=== PATIENT | male | born 1970 | race African-American/Black ===

== ENCOUNTER 2018-05-16 17:23 | Inpatient (IN) | payer MEDICAID, OTHER ==
[~2018-05-16] VITALS: Ht 185.4 cm; Wt 106.4 kg
[2018-05-16] MEDS ORDERED: FAMOTIDINE 20MG/2ML VIAL IV STA (18:38)
[2018-05-16] MEDS ORDERED: SODIUM CHLORIDE 0.9% 1,000 ML IV ONE (18:38)
[2018-05-16] MEDS ORDERED: LORAZEPAM 2MG/ML CPJ IV ONE (18:45)
[2018-05-16] MEDS ORDERED: METOCLOPRAMIDE HCL 10MG/2ML VIAL IV ONE (18:45)
[2018-05-16 19:07] LABS: HEMOGLOBIN. 12.9 g/dL (14.0-18.0); MEAN CORPUSCULAR HEMOGLOBIN 25.6 pg (28.0-32.0); MEAN CORPUSCULAR VOLUME 81.1 fL (80.0-94.0); MEAN PLATELET VOLUME 9.2 fl (7.4-10.4); PLATELET 248 x1000/uL (130-400); RED BLOOD CELL COUNT 5.06 mill/uL (4.7-6.1); RED CELL DISTRIBUTION WIDTH 16.2 % (11.6-14.6)
[2018-05-16 19:14] LABS: CHLORIDE 103 mEq/L (98-107)
[2018-05-16 20:13] LABS: PLATELET ESTIMATE NORMAL
[2018-05-16] MEDS ORDERED: POTASSIUM CHLORIDE INJ 40 MEQ in DEXT 5% WATER 250 ML IV NR (21:00)
[2018-05-16] MEDS ORDERED: ACETAMINOPHEN 325MG TABLET PO PRN (22:00)
[2018-05-16] MEDS ORDERED: HYDROCODONE/ACETAMINOPHEN 5/325MG TABLET PO PRN (22:00)
[2018-05-16] MEDS ORDERED: ONDANSETRON HCL 4MG/2ML INJ IV PRN (22:00)
[2018-05-16] MEDS ORDERED: DOCUSATE SODIUM 100MG CAPSULE PO PRN (22:00)
[2018-05-16] MEDS ORDERED: MAGNESIUM/ALUMINUM HYDROXIDE/SIMETHICONE 30ML UDC PO PRN (22:00)
[2018-05-16] MEDS ORDERED: IPRATROPIUM/ALBUTEROL 0.5-3(2.5)MG/3ML NEB INH PRN (22:00)
[2018-05-16] MEDS ORDERED: CLONIDINE 0.1MG TABLET PO PRN (22:00)
[2018-05-17] VITALS (13 sets, daily range): BP systolic 115–179; BP diastolic 75–107
[2018-05-17 00:27] LABS: CREATINE KINASE 176 IU/L (39-308); CREATINE KINASE MB FRACTION 1.3 ng/mL (0.5-3.6)
[2018-05-17] MEDS ORDERED: MVI, ADULT NO.1 10 ML, FOLIC ACID 1 MG, THIAMINE HCL 100 MG in SODIUM CHLORIDE 0.9% 1,0... IV NR ×4 (03:00)
[2018-05-17] MEDS: CHLORDIAZEPOXIDE 25MG CAPSULE PO SCH ×3 (05:10→21:02)
[2018-05-17] MEDS: ENOXAPARIN 30MG/0.3ML SYR SUBCUT SCH ×2 (08:41→20:02)
[2018-05-17] MEDS ORDERED: LISINOPRIL 20MG TABLET PO SCH (09:00)
[2018-05-17 09:20] LABS: BASOPHILS % 0.3 % (0.0-2.0); HEMATOCRIT. 35.5 % (42.0-52.0); HEMOGLOBIN. 11.4 g/dL (14.0-18.0); LYMPHOCYTES % 15.4 % (20.0-50.0); MEAN CORPUSCULAR HEMOGLOBIN 25.6 pg (28.0-32.0); MEAN CORPUSCULAR VOLUME 80.1 fL (80.0-94.0); MEAN PLATELET VOLUME 9.3 fl (7.4-10.4); MONOCYTES % 6.9 % (2.0-8.0); NEUTROPHILS % 77.4 % (40.0-76.0); PLATELET 211 x1000/uL (130-400); RED BLOOD CELL COUNT 4.43 mill/uL (4.7-6.1); RED CELL DISTRIBUTION WIDTH 15.8 % (11.6-14.6)
[2018-05-17 09:32] LABS: CHLORIDE 108 mEq/L (98-107)
[2018-05-17 09:41] LABS: LDL CHOLESTEROL 71 mg/dL (5-100)
[2018-05-17 09:42] LABS: CREATINE KINASE 323 IU/L (39-308)
[2018-05-17 09:46] LABS: CREATINE KINASE MB FRACTION 2.5 ng/mL (0.5-3.6); HDL CHOLESTEROL 120 mg/dL (40-59)
[2018-05-17] MEDS ORDERED: MAGNESIUM 2 G PREMIX 50 ML IV SCH (10:00)
[2018-05-17] MEDS ORDERED: PANTOPRAZOLE SODIUM 40 MG/VIAL IV SCH (11:00)
[2018-05-17] MEDS ORDERED: SODIUM CHLORIDE 0.9% 1,000 ML IV SCH (11:00)
[2018-05-17] MEDS ORDERED: AMLODIPINE 5MG TABLET PO SCH ×2 (11:00→21:00)
[2018-05-17 12:32] LABS: TOTAL IRON BINDING CAPACITY 259 ug/dL (250-450)
[2018-05-17 13:07] LABS: VITAMIN B12 SERUM 643 pg/mL (211-911)
[2018-05-17] MEDS: CLONIDINE 0.2MG TABLET PO SCH ×2 (13:31→21:02)
[2018-05-17 14:08] LABS: FERRITIN 337 ng/mL (22-322)
[2018-05-17 14:19] LABS: HEPATITIS B SURFACE ANTIGEN NEGATIVE
[2018-05-17 14:48] LABS: HEPATITIS A AB IGM NEGATIVE (NEGATIVE)
[2018-05-17] MEDS ORDERED: METOPROLOL TARTRATE 50MG TABLET PO SCH (21:00)
[2018-05-18] VITALS: BP 123/85
[2018-05-18 02:00] VITALS: BP 125/80
[2018-05-18] MEDS: LORAZEPAM 2MG/ML CPJ IV PRN ×2 (02:03→05:47)
[2018-05-18 04:00] VITALS: BP 139/106
[2018-05-18] MEDS: CLONIDINE 0.2MG TABLET PO SCH (05:00)
[2018-05-18] MEDS: CHLORDIAZEPOXIDE 25MG CAPSULE PO SCH (05:00)
[2018-05-18 06:00] VITALS: BP 139/102
[2018-05-18 07:26] LABS: EOSINOPHILS % 1.1 % (0.0-5.0); HEMATOCRIT. 36.9 % (42.0-52.0); HEMOGLOBIN. 11.7 g/dL (14.0-18.0); LYMPHOCYTES % 29.2 % (20.0-50.0); MEAN CORPUSCULAR HEMOGLOBIN 25.5 pg (28.0-32.0); MEAN CORPUSCULAR VOLUME 80.6 fL (80.0-94.0); MEAN PLATELET VOLUME 9.5 fl (7.4-10.4); MONOCYTES % 6.7 % (2.0-8.0); PLATELET 185 x1000/uL (130-400); RED BLOOD CELL COUNT 4.58 mill/uL (4.7-6.1); RED CELL DISTRIBUTION WIDTH 16.1 % (11.6-14.6)
[2018-05-18 07:40] LABS: CHLORIDE 105 mEq/L (98-107)
[2018-05-18 07:57] LABS: CREATINE KINASE 327 IU/L (39-308)
[2018-05-18] MEDS ORDERED: FOLIC ACID 1MG TABLET PO SCH (09:00)
[2018-05-18] MEDS ORDERED: MULTIVITAMINS,THER W-MINERALS TABLET PO SCH (09:00)
[2018-05-18] MEDS ORDERED: THIAMINE HCL 100MG TABLET PO SCH (09:00)
== END 2018-05-18 09:20 | disposition left against medical advice (07) | DRG 241 ==
LOC: ER 17:46 → ENRESERV 23:37 → 5EST 05-17 00:31
PROVIDERS: ADMIT Internal Medicine; ATTEND Internal Medicine
DX: K29.71 Gastritis, unspecified, with bleeding (principal); I24.9 Acute ischemic heart disease, unspecified; D63.8 Anemia in other chronic diseases classified elsewhere; E78.5 Hyperlipidemia, unspecified; F10.229 Alcohol dependence with intoxication, unspecified; F10.239 Alcohol dependence with withdrawal, unspecified; G40.909 Epilepsy, unspecified, not intractable, without status epilepticus; Z53.21 Procedure and treatment not carried out due to patient leaving prior to being seen by health care provider; I10 Essential (primary) hypertension; R00.0 Tachycardia, unspecified; K30 Functional dyspepsia; K59.00 Constipation, unspecified; R74.0 Nonspecific elevation of levels of transaminase and lactic acid dehydrogenase [LDH]; Z91.14 Patient's other noncompliance with medication regimen
CPT/HCPCS: 36415; 71045; 76700; 80048; 80061; 80076; 82140; 82550; 82553; 82607; 82728; 82746; 83036; 83540; 83550; 83735; 84443; 84484; 86705; 86709; 86803; 87340; 93005; 93970; 96361; 96374; 96375; 99285; C9113; J1650; J2060; J2405; J2765; J3411; J3475; J3480; J3490; J7030; J7040; J7060

== ENCOUNTER 2018-05-30 09:32 | Inpatient (IN) | payer OTHER ==
[~2018-05-30] VITALS: Ht 210.8 cm; Wt 108.9 kg
[2018-05-30] MEDS ORDERED: LORAZEPAM 2MG/ML CPJ IV ONE (10:45)
[2018-05-30] MEDS ORDERED: ASPIRIN 81MG TABLET PO ONE (10:45)
[2018-05-30] MEDS ORDERED: SODIUM CHLORIDE 0.9% 1000ML BAG (SEPSIS BOLUS) IV ONE (10:45)
[2018-05-30] MEDS: NITROGLYCERIN 0.4MG TABLET SL SL PRN ×3 (10:54→11:38)
[2018-05-30 11:26] LABS: EOSINOPHILS % 0.8 % (0.0-5.0); HEMATOCRIT. 38.9 % (42.0-52.0); HEMOGLOBIN. 12.3 g/dL (14.0-18.0); LYMPHOCYTES % 21.4 % (20.0-50.0); MEAN CORPUSCULAR VOLUME 79.1 fL (80.0-94.0); MEAN PLATELET VOLUME 8.7 fl (7.4-10.4); MONOCYTES % 4.1 % (2.0-8.0); NEUTROPHILS % 72.7 % (40.0-76.0); PLATELET 298 x1000/uL (130-400); RED BLOOD CELL COUNT 4.92 mill/uL (4.7-6.1)
[2018-05-30 11:33] LABS: CHLORIDE 102 mEq/L (98-107); PARTIAL THROMBOPLASTIN TIME 25.9 sec (23.4-31.0); PROTHROMBIN TIME 10.3 sec (9.1-11.1)
[2018-05-30 11:37] LABS: ETHANOL BLOOD 74 mg/dL
[2018-05-30 11:38] LABS: CLARITY URINE CLOUDY (CLEAR); COLOR URINE YELLOW (YELLOW); KETONES URINE 4+ (NEGATIVE); LEUKOCYTE ESTERASE URINE NEGATIVE (NEGATIVE); NITRITE URINE NEGATIVE (NEGATIVE); OCCULT BLOOD URINE 2+ (NEGATIVE); PH URINE 6.5 (4.5-8.0); PROTEIN URINE 2+ (NEGATIVE); SPECIFIC GRAVITY URINE 1.025 (1.005-1.030)
[2018-05-30 11:54] LABS: *AMPHETAMINES SCREEN URINE NEGATIVE (NEGATIVE); *BARBITURATES SCREEN URINE NEGATIVE (NEGATIVE)
[2018-05-30 11:55] LABS: *BENZODIAZEPINES SCREEN URINE PRESUMTIVE POSITIVE (NEGATIVE); *COCAINE SCREEN URINE NEGATIVE (NEGATIVE); METHADONE URINE SCREEN NEGATIVE (NEGATIVE); OPIATES URINE SCREEN NEGATIVE (NEGATIVE); PHENCYCLIDINE URINE SCREEN NEGATIVE (NEGATIVE)
[2018-05-30 11:56] LABS: CANNABINOID URINE SCREEN NEGATIVE (NEGATIVE)
[2018-05-30] MEDS ORDERED: MAGNESIUM OXIDE 400MG TABLET PO SCH (12:00)
[2018-05-30] MEDS ORDERED: POTASSIUM CHLORIDE 20MEQ TABLET SR PO ONE (12:00)
[2018-05-30] MEDS ORDERED: LEVOFLOXACIN 750MG PREMIX 150 ML IV ONE (12:00)
[2018-05-30] MEDS ORDERED: ACETAMINOPHEN 325MG TABLET PO PRN (13:00)
[2018-05-30] MEDS ORDERED: ONDANSETRON HCL 4MG/2ML INJ IV PRN (13:00)
[2018-05-30] MEDS ORDERED: LORAZEPAM 2MG/ML CPJ IV PRN (13:00)
[2018-05-30] MEDS ORDERED: MORPHINE SULFATE 4 MG/ML CPJ (NOT FOR IM USE) IV PRN (13:30)
[2018-05-30] MEDS: FOLIC ACID 1 MG, THIAMINE HCL 100 MG, MVI, ADULT NO.1 10 ML in DEXTROSE 5% WATER 1,000 ML IV SCH ×8 (13:41→23:10)
[2018-05-30] MEDS: CHLORDIAZEPOXIDE 25MG CAPSULE PO SCH ×2 (14:00→20:08)
[2018-05-30] MEDS ORDERED: LOSARTAN POTASSIUM 50 MG TABLET PO NR (16:45)
[2018-05-30 19:21] VITALS: BP 157/102
[2018-05-30 20:00] VITALS: BP 157/97
[2018-05-30] MEDS: LEVETIRACETAM 500MG TABLET PO SCH (20:08)
[2018-05-30] MEDS: AMLODIPINE 5MG TABLET PO SCH (20:08)
[2018-05-31] VITALS: BP 158/104
[2018-05-31 04:00] VITALS: BP 133/97
[2018-05-31] MEDS: CHLORDIAZEPOXIDE 25MG CAPSULE PO SCH ×2 (06:44→14:53)
[2018-05-31 08:00] VITALS: BP 141/100
[2018-05-31 08:09] LABS: BASOPHILS % 0.8 % (0.0-2.0); EOSINOPHILS % 1.2 % (0.0-5.0); HEMATOCRIT. 37.5 % (42.0-52.0); HEMOGLOBIN. 11.7 g/dL (14.0-18.0); LYMPHOCYTES % 25.6 % (20.0-50.0); MEAN CORPUSCULAR VOLUME 80.2 fL (80.0-94.0); MONOCYTES % 7.9 % (2.0-8.0); NEUTROPHILS % 64.5 % (40.0-76.0); PLATELET 216 x1000/uL (130-400); RED BLOOD CELL COUNT 4.67 mill/uL (4.7-6.1); RED CELL DISTRIBUTION WIDTH 16.1 % (11.6-14.6)
[2018-05-31 08:50] LABS: CHLORIDE 99 mEq/L (98-107)
[2018-05-31] MEDS ORDERED: LOSARTAN POTASSIUM 50 MG TABLET PO SCH (09:00)
[2018-05-31] MEDS ORDERED: ASPIRIN 81MG TABLET PO SCH (09:00)
[2018-05-31] MEDS ORDERED: REGADENOSON 0.4 MG/5 ML IV SCH (09:15)
[2018-05-31] MEDS: LEVETIRACETAM 500MG TABLET PO SCH (09:50)
[2018-05-31] MEDS: AMLODIPINE 5MG TABLET PO SCH (09:50)
[2018-05-31] MEDS ORDERED: REGADENOSON 0.4 MG/5 ML IV ONE (10:55)
[2018-05-31] MEDS ORDERED: POTASSIUM CHLORIDE 20MEQ TABLET SR PO NR (11:45)
[2018-05-31 12:00] VITALS: BP 140/90
[2018-05-31 14:05] LABS: T4 FREE 0.98 ng/dL (0.76-1.46)
[2018-05-31 15:00] LABS: CREATINE KINASE MB FRACTION 1.2 ng/mL (0.5-3.6)
[2018-05-31 16:00] VITALS: BP 137/94
[2018-05-31 16:28] VITALS: BP 137/94
== END 2018-05-31 16:48 | disposition home or self-care (01) | DRG 203 ==
LOC: ER 09:32 → 7WST 12:33 → EDBEDREQ 12:37 → ENRESERV 17:05
PROVIDERS: ADMIT Internal Medicine; ATTEND Internal Medicine
DX: M94.0 Chondrocostal junction syndrome [Tietze] (principal); I11.0 Hypertensive heart disease with heart failure; E83.42 Hypomagnesemia; I50.22 Chronic systolic (congestive) heart failure; I42.6 Alcoholic cardiomyopathy; D64.9 Anemia, unspecified; E66.9 Obesity, unspecified; G40.909 Epilepsy, unspecified, not intractable, without status epilepticus; I10 Essential (primary) hypertension; Z91.14 Patient's other noncompliance with medication regimen; E87.6 Hypokalemia; I16.0 Hypertensive urgency; Z68.24 Body mass index [BMI] 24.0-24.9, adult
CPT/HCPCS: 36415; 71045; 78452; 80048; 80061; 80305; 80320; 82550; 82553; 83036; 83605; 83735; 83880; 84145; 84439; 84443; 84484; 85379; 87804; 93005; 93017; 93306; 93970; 96365; 96375; 99291; A9500; J1956; J2060; J2270; J2405; J2785; J3411; J3490; J7030; J7070; G0480

== ENCOUNTER 2018-06-26 06:12 | Inpatient (IN) | payer OTHER ==
[~2018-06-26] VITALS: Ht 195.6 cm; Wt 113.4 kg
[2018-06-26] MEDS ORDERED: SODIUM CHLORIDE 0.9% 1,000 ML IV ONE (06:54)
[2018-06-26] MEDS ORDERED: ACETAMINOPHEN 325MG TABLET PO STA (06:54)
[2018-06-26 07:23] LABS: BASOPHILS % 1.1 % (0.0-2.0); EOSINOPHILS % 0.5 % (0.0-5.0); HEMATOCRIT. 38.6 % (42.0-52.0); HEMOGLOBIN. 12.2 g/dL (14.0-18.0); LYMPHOCYTES % 24.3 % (20.0-50.0); MEAN CORPUSCULAR HEMOGLOBIN 25.1 pg (28.0-32.0); MEAN CORPUSCULAR VOLUME 79.4 fL (80.0-94.0); MEAN PLATELET VOLUME 9.8 fl (7.4-10.4); NEUTROPHILS % 71.1 % (40.0-76.0); PLATELET 111 x1000/uL (130-400); RED BLOOD CELL COUNT 4.85 mill/uL (4.7-6.1); RED CELL DISTRIBUTION WIDTH 14.8 % (11.6-14.6)
[2018-06-26 07:26] LABS: CHLORIDE 101 mEq/L (98-107)
[2018-06-26 07:30] LABS: ETHANOL BLOOD 135 mg/dL
[2018-06-26] MEDS ORDERED: IBUPROFEN 600MG TABLET PO STA (09:20)
[2018-06-26] MEDS ORDERED: ASPIRIN 81MG TABLET PO ONE (09:30)
[2018-06-26 09:32] LABS: *AMPHETAMINES SCREEN URINE NEGATIVE (NEGATIVE); *BARBITURATES SCREEN URINE NEGATIVE (NEGATIVE); *BENZODIAZEPINES SCREEN URINE PRESUMTIVE POSITIVE (NEGATIVE); *COCAINE SCREEN URINE NEGATIVE (NEGATIVE)
[2018-06-26 09:33] LABS: CANNABINOID URINE SCREEN NEGATIVE (NEGATIVE); METHADONE URINE SCREEN NEGATIVE (NEGATIVE); OPIATES URINE SCREEN NEGATIVE (NEGATIVE); PHENCYCLIDINE URINE SCREEN NEGATIVE (NEGATIVE)
[2018-06-26] MEDS: NITROGLYCERIN 0.4MG TABLET SL SL PRN ×2 (09:40→20:50)
[2018-06-26] MEDS ORDERED: MAGNESIUM/ALUMINUM HYDROXIDE/SIMETHICONE 30ML UDC PO PRN (09:45)
[2018-06-26] MEDS ORDERED: IPRATROPIUM/ALBUTEROL 0.5-3(2.5)MG/3ML NEB INH PRN (09:45)
[2018-06-26] MEDS ORDERED: DIPHENHYDRAMINE 50MG/ML VIAL IV PRN (09:45)
[2018-06-26] MEDS ORDERED: GUAIFENESIN 200MG/10ML SUGAR FREE UDC PO PRN (09:45)
[2018-06-26] MEDS ORDERED: DOCUSATE SODIUM 100MG CAPSULE PO PRN (09:45)
[2018-06-26] MEDS ORDERED: CLONIDINE 0.1MG TABLET PO PRN (14:00)
[2018-06-26] MEDS: LORAZEPAM 2MG/ML CPJ IV PRN (14:15)
[2018-06-26] MEDS: ONDANSETRON HCL 4MG/2ML INJ IV PRN (14:15)
[2018-06-26] MEDS ORDERED: AMLODIPINE 5MG TABLET PO NR (14:15)
[2018-06-26] MEDS ORDERED: SODIUM CHLORIDE 0.45% 1,000 ML IV ONE (14:15)
[2018-06-26 16:00] VITALS: BP 161/92
[2018-06-26 16:21] LABS: TOTAL IRON BINDING CAPACITY 259 ug/dL (250-450)
[2018-06-26] MEDS ORDERED: BISACODYL 10MG SUPP PR PRN ×2 (16:30)
[2018-06-26 16:32] VITALS: BP 153/92
[2018-06-26 16:35] LABS: FOLIC ACID (FOLATE) SERUM 5.7 ng/mL (>5.38)
[2018-06-26] MEDS ORDERED: DEXT 5%/0.45% NACL 500ML 500 ML IV ONE (16:45)
[2018-06-26 16:59] LABS: HEPATITIS B SURFACE ANTIGEN NEGATIVE
[2018-06-26 17:29] LABS: HEPATITIS A AB IGM NEGATIVE (NEGATIVE)
[2018-06-26] MEDS: MORPHINE SULFATE 4 MG/ML CPJ (NOT FOR IM USE) IV PRN ×2 (17:40→23:49)
[2018-06-26] MEDS: DIATR MEGLU/DIATRIZOATE SOLN 30ML PO SCH ×2 (17:41→17:48)
[2018-06-26 17:59] LABS: CREATINE KINASE MB FRACTION 2.1 ng/mL (0.5-3.6)
[2018-06-26] MEDS ORDERED: MORPHINE SULFATE 4 MG/ML CPJ (NOT FOR IM USE) IV SCH (18:00)
[2018-06-26 20:00] VITALS: BP 167/96
[2018-06-26] MEDS ORDERED: IOHEXOL-300 100 ML BOTTLE ONE (20:24)
[2018-06-27] VITALS: BP 160/105
[2018-06-27] MEDS: ONDANSETRON HCL 4MG/2ML INJ IV PRN (00:38)
[2018-06-27] MEDS: LORAZEPAM 2MG/ML CPJ IV PRN (00:38)
[2018-06-27 04:00] VITALS: BP 157/105
[2018-06-27 06:24] LABS: BASOPHILS % 1.1 % (0.0-2.0); EOSINOPHILS % 0.4 % (0.0-5.0); HEMATOCRIT. 37.5 % (42.0-52.0); HEMOGLOBIN. 11.9 g/dL (14.0-18.0); LYMPHOCYTES % 12.3 % (20.0-50.0); MEAN CORPUSCULAR HEMOGLOBIN 25.3 pg (28.0-32.0); MEAN CORPUSCULAR VOLUME 79.9 fL (80.0-94.0); MEAN PLATELET VOLUME 10.3 fl (7.4-10.4); MONOCYTES % 6.3 % (2.0-8.0); NEUTROPHILS % 79.9 % (40.0-76.0); PLATELET 83 x1000/uL (130-400); RED CELL DISTRIBUTION WIDTH 14.7 % (11.6-14.6)
[2018-06-27 06:41] LABS: CHLORIDE 105 mEq/L (98-107)
[2018-06-27 07:06] LABS: LDL CHOLESTEROL 94 mg/dL (5-100)
[2018-06-27 07:08] LABS: CREATINE KINASE 231 IU/L (39-308)
[2018-06-27 07:09] LABS: HDL CHOLESTEROL 91 mg/dL (40-59)
[2018-06-27 07:10] LABS: CREATINE KINASE MB FRACTION 2.8 ng/mL (0.5-3.6)
[2018-06-27 08:00] VITALS: BP 155/106
[2018-06-27] MEDS ORDERED: SODIUM CHLORIDE 0.9% 1,000 ML IV SCH (08:00)
[2018-06-27] MEDS: MORPHINE SULFATE 4 MG/ML CPJ (NOT FOR IM USE) IV PRN (08:15)
[2018-06-27] MEDS ORDERED: AMLODIPINE 5MG TABLET PO SCH (09:00)
[2018-06-27 12:00] VITALS: BP 147/99
[2018-06-27 12:53] VITALS: BP 147/99
[2018-06-27] MEDS ORDERED: CLONIDINE 0.1MG TABLET PO SCH (14:00)
== END 2018-06-27 13:40 | disposition home or self-care (01) | DRG 775 ==
LOC: ER 06:12 → 8WST 09:33 → ENRESERV 12:29
PROVIDERS: ADMIT Internal Medicine; ATTEND Internal Medicine
DX: F10.229 Alcohol dependence with intoxication, unspecified (principal); D69.6 Thrombocytopenia, unspecified; I42.0 Dilated cardiomyopathy; I45.81 Long QT syndrome; D50.9 Iron deficiency anemia, unspecified; D63.8 Anemia in other chronic diseases classified elsewhere; E87.6 Hypokalemia; G40.909 Epilepsy, unspecified, not intractable, without status epilepticus; I10 Essential (primary) hypertension; Y90.6 Blood alcohol level of 120-199 mg/100 ml; R74.0 Nonspecific elevation of levels of transaminase and lactic acid dehydrogenase [LDH]; K76.9 Liver disease, unspecified
CPT/HCPCS: 36415; 71045; 74177; 76700; 80061; 80305; 80320; 82248; 82550; 82553; 82728; 82746; 83540; 83550; 84443; 84484; 86705; 86709; 86803; 87340; 93005; 93970; 96360; 96361; 97162; 97165; 99285; J2060; J2270; J2405; J7030; Q9963; Q9967; G0480

== ENCOUNTER 2018-06-28 10:39 | Emergency (ER) | payer OTHER ==
[~2018-06-28] VITALS: Ht 193 cm; Wt 114.0 kg
[2018-06-28] MEDS ORDERED: KETOROLAC 30MG/ML VIAL IV STA (11:39)
[2018-06-28] MEDS ORDERED: SODIUM CHLORIDE 0.9% 1,000 ML IV ONE (11:39)
[2018-06-28 11:52] LABS: BASOPHILS % 1.2 % (0.0-2.0); HEMATOCRIT. 37.5 % (42.0-52.0); HEMOGLOBIN. 11.9 g/dL (14.0-18.0); LYMPHOCYTES % 17.7 % (20.0-50.0); MEAN CORPUSCULAR HEMOGLOBIN 25.2 pg (28.0-32.0); MEAN CORPUSCULAR VOLUME 79.7 fL (80.0-94.0); MONOCYTES % 5.4 % (2.0-8.0); NEUTROPHILS % 72.7 % (40.0-76.0); PLATELET 72 x1000/uL (130-400); RED BLOOD CELL COUNT 4.71 mill/uL (4.7-6.1); RED CELL DISTRIBUTION WIDTH 14.6 % (11.6-14.6)
[2018-06-28 12:02] LABS: PARTIAL THROMBOPLASTIN TIME 26.4 sec (23.4-31.0); PROTHROMBIN TIME 10.5 sec (9.6-11.0)
[2018-06-28 12:03] LABS: ETHANOL BLOOD < 10 mg/dL
[2018-06-28 12:09] LABS: CHLORIDE 104 mEq/L (98-107)
[2018-06-28 14:42] LABS: CLARITY URINE CLEAR (CLEAR); COLOR URINE ORANGE (YELLOW); KETONES URINE 3+ (NEGATIVE); LEUKOCYTE ESTERASE URINE TRACE (NEGATIVE); NITRITE URINE NEGATIVE (NEGATIVE); OCCULT BLOOD URINE 2+ (NEGATIVE); PH URINE 6.5 (4.5-8.0); PROTEIN URINE 2+ (NEGATIVE)
[2018-06-28 14:56] LABS: *AMPHETAMINES SCREEN URINE NEGATIVE (NEGATIVE); *BARBITURATES SCREEN URINE NEGATIVE (NEGATIVE); *BENZODIAZEPINES SCREEN URINE PRESUMTIVE POSITIVE (NEGATIVE)
[2018-06-28 14:57] LABS: *COCAINE SCREEN URINE NEGATIVE (NEGATIVE); CANNABINOID URINE SCREEN NEGATIVE (NEGATIVE); METHADONE URINE SCREEN NEGATIVE (NEGATIVE); OPIATES URINE SCREEN PRESUMTIVE POSITIVE (NEGATIVE); PHENCYCLIDINE URINE SCREEN NEGATIVE (NEGATIVE)
[2018-06-28 16:10] VITALS: BP 142/94
== END 2018-06-28 16:28 | disposition home or self-care (01) ==
LOC: ER 10:39
DX: R07.89 Other chest pain (principal); R10.84 Generalized abdominal pain; I11.0 Hypertensive heart disease with heart failure; I50.9 Heart failure, unspecified; K76.9 Liver disease, unspecified; N28.9 Disorder of kidney and ureter, unspecified; F10.10 Alcohol abuse, uncomplicated; I25.10 Atherosclerotic heart disease of native coronary artery without angina pectoris; Y90.0 Blood alcohol level of less than 20 mg/100 ml
CPT/HCPCS: 36415; 71045; 74176; 80053; 80305; 80320; 81003; 83690; 84484; 85025; 85610; 85730; 93005; 96374; 99284; J1885; J7030; Z7610; G0480

== ENCOUNTER 2018-08-04 01:09 | Emergency (ER) | payer MEDICAID, OTHER ==
[~2018-08-04] VITALS: Ht 182.9 cm; Wt 211.0 kg
[2018-08-04] MEDS ORDERED: KETOROLAC 30MG/ML VIAL IV STA (03:22)
[2018-08-04] MEDS ORDERED: NITROGLYCERIN 0.4MG TABLET SL SL PRN (03:30)
[2018-08-04] MEDS ORDERED: ASPIRIN 81MG TABLET PO ONE (03:30)
[2018-08-04 03:57] LABS: BASOPHILS % 1.3 % (0.0-2.0); HEMATOCRIT. 37.5 % (42.0-52.0); LYMPHOCYTES % 14.6 % (20.0-50.0); MEAN CORPUSCULAR HEMOGLOBIN 24.8 pg (28.0-32.0); MEAN CORPUSCULAR VOLUME 77.5 fL (80.0-94.0); MEAN PLATELET VOLUME 9.2 fl (7.4-10.4); MONOCYTES % 3.1 % (2.0-8.0); PLATELET 214 x1000/uL (130-400); RED BLOOD CELL COUNT 4.84 mill/uL (4.7-6.1); RED CELL DISTRIBUTION WIDTH 14.5 % (11.6-14.6)
[2018-08-04 03:58] LABS: CHLORIDE 100 mEq/L (98-107)
[2018-08-04 04:02] LABS: ETHANOL BLOOD < 10 mg/dL
[2018-08-04 05:10] LABS: *BARBITURATES SCREEN URINE NEGATIVE (NEGATIVE); *BENZODIAZEPINES SCREEN URINE NEGATIVE (NEGATIVE); *COCAINE SCREEN URINE NEGATIVE (NEGATIVE); METHADONE URINE SCREEN NEGATIVE (NEGATIVE); OPIATES URINE SCREEN NEGATIVE (NEGATIVE)
[2018-08-04 05:11] LABS: *AMPHETAMINES SCREEN URINE NEGATIVE (NEGATIVE); CANNABINOID URINE SCREEN NEGATIVE (NEGATIVE); PHENCYCLIDINE URINE SCREEN NEGATIVE (NEGATIVE)
[2018-08-04] MEDS ORDERED: IBUPROFEN 600MG TABLET PO ONE (06:00)
[2018-08-04 07:30] VITALS: BP 142/100
== END 2018-08-04 07:35 | disposition home or self-care (01) ==
LOC: ER 01:09
DX: R07.89 Other chest pain (principal); F10.20 Alcohol dependence, uncomplicated; Y90.0 Blood alcohol level of less than 20 mg/100 ml; I10 Essential (primary) hypertension
CPT/HCPCS: 36415; 71045; 80053; 80305; 80320; 83880; 84484; 85025; 93005; 96374; 99284; J1885; Z7610; G0480

== ENCOUNTER 2018-11-14 19:04 | Emergency (ER) | payer MEDICAID ==
[~2018-11-14] VITALS: Ht 188 cm; Wt 100.0 kg
[2018-11-14] MEDS ORDERED: HYDR25TA PO (19:17)
[2018-11-14] MEDS ORDERED: ASPIRIN 81MG TABLET PO ONE (19:30)
[2018-11-14 20:11] LABS: BASOPHILS % 1.2 % (0.0-2.0); EOSINOPHILS % 2.8 % (0.0-5.0); HEMATOCRIT. 34.5 % (42.0-52.0); LYMPHOCYTES % 31.8 % (20.0-50.0); MEAN CORPUSCULAR HEMOGLOBIN 24.3 pg (28.0-32.0); MEAN CORPUSCULAR VOLUME 76.1 fL (80.0-94.0); MEAN PLATELET VOLUME 9.3 fl (7.4-10.4); MONOCYTES % 6.4 % (2.0-8.0); NEUTROPHILS % 57.8 % (40.0-76.0); PLATELET 113 x1000/uL (130-400); RED BLOOD CELL COUNT 4.54 mill/uL (4.7-6.1); RED CELL DISTRIBUTION WIDTH 16.7 % (11.6-14.6)
[2018-11-14 20:19] LABS: CHLORIDE 103 mEq/L (98-107)
[2018-11-14 20:23] LABS: ETHANOL BLOOD 82 mg/dL
[2018-11-14] MEDS: NITROGLYCERIN 0.4MG TABLET SL SL PRN ×2 (20:36→21:36)
[2018-11-14] MEDS ORDERED: POTASSIUM CHLORIDE 20MEQ TABLET SR PO ONE (21:00)
[2018-11-15 02:47] LABS: *AMPHETAMINES SCREEN URINE NEGATIVE (NEGATIVE); *BARBITURATES SCREEN URINE NEGATIVE (NEGATIVE); *BENZODIAZEPINES SCREEN URINE NEGATIVE (NEGATIVE); *COCAINE SCREEN URINE NEGATIVE (NEGATIVE); CANNABINOID URINE SCREEN NEGATIVE (NEGATIVE); METHADONE URINE SCREEN NEGATIVE (NEGATIVE); OPIATES URINE SCREEN NEGATIVE (NEGATIVE); PHENCYCLIDINE URINE SCREEN NEGATIVE (NEGATIVE)
[2018-11-15 05:20] VITALS: BP 148/96
== END 2018-11-15 06:37 | disposition home or self-care (01) ==
LOC: ER 19:04
DX: R07.89 Other chest pain (principal); E87.6 Hypokalemia; I10 Essential (primary) hypertension; F10.20 Alcohol dependence, uncomplicated; Y90.4 Blood alcohol level of 80-99 mg/100 ml
CPT/HCPCS: 36415; 71045; 80053; 80305; 80320; 83690; 83880; 84484; 85025; 93005; 99284; Z7610; G0480

== ENCOUNTER 2020-06-20 21:21 | Emergency (ER) | payer MEDICAID ==
[~2020-06-20] VITALS: Ht 188 cm; Wt 100.0 kg
[~2020-06-20 21:21] MED LIST: HYDR25TA PO
[2020-06-20] MEDS ORDERED: ONDANSETRON HCL 4MG/2ML INJ IV STA (22:25)
[2020-06-20] MEDS ORDERED: CLONIDINE 0.2MG TABLET PO ONE (22:30)
[2020-06-20] MEDS ORDERED: IBUPROFEN 400MG TABLET PO ONE (22:30)
[2020-06-20 22:58] LABS: HEMATOCRIT. 36.5 % (42.0-52.0); HEMOGLOBIN. 12.2 g/dL (14.0-18.0); MEAN CORPUSCULAR HEMOGLOBIN 25.3 pg (28.0-32.0); MEAN CORPUSCULAR VOLUME 75.7 fL (80.0-94.0); MEAN PLATELET VOLUME 10.5 fl (7.4-10.4); PLATELET 263 x1000/uL (130-400); RED BLOOD CELL COUNT 4.82 mill/uL (4.7-6.1); RED CELL DISTRIBUTION WIDTH 18.9 % (11.6-14.6)
[2020-06-20 23:17] LABS: PLATELET ESTIMATE NORMAL
[2020-06-20 23:43] LABS: CHLORIDE 103 mEq/L (98-107)
[2020-06-20] MEDS ORDERED: ACETAMINOPHEN 325MG TABLET PO ONE (23:45)
[2020-06-20 23:47] LABS: ETHANOL BLOOD < 10 mg/dL
[2020-06-21] MEDS ORDERED: POTASSIUM CHLORIDE 20MEQ TABLET SR PO ONE
[2020-06-21] MEDS ORDERED: ONDANSETRON HCL 4MG/2ML INJ IV STA (00:20)
[2020-06-21] MEDS ORDERED: FAMOTIDINE 20MG/2ML VIAL IV ONE (00:30)
[2020-06-21] MEDS ORDERED: SODIUM CHLORIDE 0.9% 1,000 ML IV ONE (00:30)
[2020-06-21] MEDS ORDERED: ASPIRIN 325MG EC TABLET PO ONE (01:15)
[2020-06-21 01:26] LABS: *AMPHETAMINES SCREEN URINE NEGATIVE (NEGATIVE); *BARBITURATES SCREEN URINE NEGATIVE (NEGATIVE); *BENZODIAZEPINES SCREEN URINE NEGATIVE (NEGATIVE); *COCAINE SCREEN URINE NEGATIVE (NEGATIVE); METHADONE URINE SCREEN NEGATIVE (NEGATIVE); OPIATES URINE SCREEN NEGATIVE (NEGATIVE)
[2020-06-21 01:27] LABS: CANNABINOID URINE SCREEN NEGATIVE (NEGATIVE); PHENCYCLIDINE URINE SCREEN NEGATIVE (NEGATIVE)
[2020-06-21 02:39] VITALS: BP 169/102
[2020-06-21] MEDS ORDERED: METOCLOPRAMIDE HCL 10MG/2ML VIAL IV ONE (02:45)
== END 2020-06-21 02:39 | disposition short-term general hospital (02) ==
LOC: ER 21:21
DX: R07.89 Other chest pain (principal); I10 Essential (primary) hypertension; R00.0 Tachycardia, unspecified; E87.6 Hypokalemia; R79.89 Other specified abnormal findings of blood chemistry; F10.20 Alcohol dependence, uncomplicated; Y90.0 Blood alcohol level of less than 20 mg/100 ml; Z91.14 Patient's other noncompliance with medication regimen
CPT/HCPCS: 36415; 70450; 71045; 80053; 80305; 80320; 83690; 84484; 85025; 93005; 96361; 96374; 96375; 96376; 99285; J2405; J2765; J3490; J7030; G0480

== ENCOUNTER 2021-08-23 04:03 | Emergency (ER) | payer MEDICAID ==
[~2021-08-23] VITALS: Ht 170.2 cm; Wt 100.0 kg
[2021-08-23] MEDS ORDERED: ONDANSETRON 4MG ODT PO ONE (04:30)
[2021-08-23 04:40] VITALS: BP 126/77
== END 2021-08-23 04:41 | disposition home or self-care (01) ==
LOC: ER 04:03
DX: F10.129 Alcohol abuse with intoxication, unspecified (principal); I10 Essential (primary) hypertension; Y90.9 Presence of alcohol in blood, level not specified
CPT/HCPCS: 99283; Q0162

== ENCOUNTER 2024-02-21 14:05 | Emergency (ER) | payer MEDICAID ==
[~2024-02-21] VITALS: Ht 190.5 cm; Wt 100.0 kg
[2024-02-21 14:06] VITALS: BP 133/84; PULSE 64; RESP 18; TEMP 97.9; O2SAT 100
[2024-02-21 15:32] LABS: BASOPHILS % 0.6 % (0.0-2.0); EOSINOPHILS % 1.3 % (0.0-5.0); HEMATOCRIT. 35.8 % (42.0-52.0); HEMOGLOBIN. 11.2 g/dL (14.0-18.0); LYMPHOCYTES % 14.9 % (20.0-50.0); MEAN CORPUSCULAR HEMOGLOBIN 24.3 pg (28.0-32.0); MEAN CORPUSCULAR HGB CONC 31.4 g/dL (31.0-37.0); MEAN CORPUSCULAR VOLUME 77.3 fL (80.0-94.0); MEAN PLATELET VOLUME 8.7 fl (7.4-10.4); MONOCYTES % 4.1 % (2.0-8.0); NEUTROPHILS % 79.1 % (40.0-76.0); PLATELET 154 x1000/uL (130-400); RED BLOOD CELL COUNT 4.62 mill/uL (4.7-6.1); RED CELL DISTRIBUTION WIDTH 17.9 % (11.6-14.6); WHITE BLOOD COUNT 6.2 x1000/uL (4.5-11.0)
[2024-02-21 15:39] LABS: DIFFERENTIAL COMMENT 1
[2024-02-21 15:40] LABS: CHLORIDE 99 mEq/L (98-107); POTASSIUM 3.2 mEq/L (3.5-5.1); PROTHROMBIN TIME 11.1 sec (9.6-11.0); SODIUM 137 mEq/L (136-145)
[2024-02-21 15:41] LABS: CALCIUM 10.2 mg/dL (8.7-10.4); CARBON DIOXIDE 32 mEq/L (21-32)
[2024-02-21 15:46] LABS: GLUCOSE 121 mg/dL (70-105); TROPONIN I HIGH SENSITIVITY 5 ng/L (3.0-53); UREA NITROGEN BLOOD 8 mg/dL (9-23)
[2024-02-21 15:48] LABS: ETHANOL BLOOD < 10 mg/dL (<10)
[2024-02-21] MEDS ORDERED: POTASSIUM CHLORIDE 20MEQ TABLET SR PO ONE (16:15)
[2024-02-21] MEDS: POTASSIUM CHLORIDE 20MEQ TABLET SR PO NR (18:16)
== END 2024-02-21 18:41 | disposition home or self-care (01) ==
LOC: ER 14:05
DX: R55 Syncope and collapse (principal); E87.6 Hypokalemia; I10 Essential (primary) hypertension
CPT/HCPCS: 36415; 71045; 80048; 80320; 83880; 84484; 85025; 93005; 99285; G0480

== ENCOUNTER 2024-05-25 14:15 | Emergency (ER) | payer MEDICAID ==
[~2024-05-25] VITALS: Ht 188 cm; Wt 105.0 kg
[2024-05-25 14:21] VITALS: TEMP 36.9; O2SAT 98
[2024-05-25 16:29] LABS: CHLORIDE 94 mEq/L (98-107); POTASSIUM 3.3 mEq/L (3.5-5.1); SODIUM 133 mEq/L (136-145)
[2024-05-25 16:30] LABS: BASOPHILS % 0.6 % (0.0-2.0); CALCIUM 10.1 mg/dL (8.7-10.4); CARBON DIOXIDE 30 mEq/L (21-32); DIFFERENTIAL COMMENT 0; EOSINOPHILS % 0.4 % (0.0-5.0); HEMATOCRIT. 38.3 % (42.0-52.0); HEMOGLOBIN. 11.8 g/dL (14.0-18.0); LYMPHOCYTES % 11.4 % (20.0-50.0); MEAN CORPUSCULAR HEMOGLOBIN 23.5 pg (28.0-32.0); MEAN CORPUSCULAR HGB CONC 30.8 g/dL (31.0-37.0); MEAN CORPUSCULAR VOLUME 76.1 fL (80.0-94.0); MEAN PLATELET VOLUME 8.2 fl (7.4-10.4); MONOCYTES % 5.5 % (2.0-8.0); NEUTROPHILS % 82.1 % (40.0-76.0); PLATELET 206 x1000/uL (130-400); RED BLOOD CELL COUNT 5.03 mill/uL (4.7-6.1); RED CELL DISTRIBUTION WIDTH 19.8 % (11.6-14.6); WHITE BLOOD COUNT 8.1 x1000/uL (4.5-11.0)
[2024-05-25 16:35] LABS: GLUCOSE 147 mg/dL (70-105); UREA NITROGEN BLOOD 7 mg/dL (9-23)
[2024-05-25 16:36] LABS: CREATININE 1.6 mg/dL (0.6-1.3); TROPONIN I HIGH SENSITIVITY 4 ng/L (3.0-53)
[2024-05-25 16:37] LABS: ALANINE AMINOTRANSFERASE 25 IU/L (10-49); ALBUMIN 4.7 g/dL (3.2-4.8); ASPARTATE AMINOTRANSFERASE 43 IU/L (<34); PROTEIN TOTAL 8.4 g/dL (6.0-8.3)
[2024-05-25] MEDS: SODIUM CHLORIDE 0.9% 1,000 ML IV ONE (18:07)
[2024-05-25 19:37] VITALS: BP 115/84; PULSE 87; RESP 14; O2SAT 98
== END 2024-05-25 20:17 | disposition home or self-care (01) ==
LOC: ER 14:41
DX: R55 Syncope and collapse (principal); I10 Essential (primary) hypertension; F41.9 Anxiety disorder, unspecified; F10.90 Alcohol use, unspecified, uncomplicated; Y90.9 Presence of alcohol in blood, level not specified
CPT/HCPCS: 99285; 96360; 71045; 96361; 80053; 83735; 85025; 84484; 36415; J7030; 99284

== ENCOUNTER 2024-10-16 13:12 | Emergency (ER) | payer MEDICAID ==
[~2024-10-16] VITALS: Ht 182.9 cm; Wt 1105.0 kg
[2024-10-16 13:15] VITALS: O2SAT 98
[2024-10-16] MEDS: SODIUM CHLORIDE 0.9% 1,000 ML IV ONE (13:30)
[2024-10-16 13:51] VITALS: BP 112/72; PULSE 95; RESP 12; TEMP 37.2; O2SAT 98
[2024-10-16 15:00] LABS: BASOPHILS % 0.4 % (0.0-2.0); EOSINOPHILS % 0.1 % (0.0-5.0); HEMATOCRIT. 35.4 % (42.0-52.0); HEMOGLOBIN. 10.9 g/dL (14.0-18.0); LYMPHOCYTES % 7.2 % (20.0-50.0); MEAN PLATELET VOLUME 8.8 fl (7.4-10.4); MONOCYTES % 3.3 % (2.0-8.0); NEUTROPHILS % 89.0 % (40.0-76.0); PLATELET 197 x1000/uL (130-400); RED BLOOD CELL COUNT 4.58 mill/uL (4.7-6.1); RED CELL DISTRIBUTION WIDTH 17.7 % (11.6-14.6)
[2024-10-16 15:13] LABS: CREATININE 1.0 mg/dL (0.6-1.3); UREA NITROGEN BLOOD 11 mg/dL (9-23)
[2024-10-16 15:14] LABS: ETHANOL BLOOD 116 mg/dL (<10)
[2024-10-16 15:15] LABS: ASPARTATE AMINOTRANSFERASE 27 IU/L (<34); BILIRUBIN DIRECT 0.3 mg/dL (<=3.0); BILIRUBIN TOTAL 1.0 mg/dL (0.1-1.0)
[2024-10-16 15:16] LABS: PROTEIN TOTAL 7.1 g/dL (6.0-8.3)
[2024-10-16 16:09] LABS: *AMPHETAMINES SCREEN URINE NEGATIVE (NEGATIVE); *BARBITURATES SCREEN URINE NEGATIVE (NEGATIVE); *BENZODIAZEPINES SCREEN URINE NEGATIVE (NEGATIVE); *COCAINE SCREEN URINE NEGATIVE (NEGATIVE); METHADONE URINE SCREEN NEGATIVE (NEGATIVE); OPIATES URINE SCREEN NEGATIVE (NEGATIVE); PHENCYCLIDINE URINE SCREEN NEGATIVE (NEGATIVE)
[2024-10-16 16:10] LABS: CANNABINOID URINE SCREEN NEGATIVE (NEGATIVE); ECSTASY MDMA SCREEN URINE NEGATIVE (NEGATIVE)
[2024-10-22] MEDS ORDERED: PANT40TA51 PO (09:43)
[2024-10-22] MEDS ORDERED: FERR325T6 PO (09:43)
[2024-10-22] MEDS ORDERED: DYR5 GT (09:43)
[2024-10-24] MEDS ORDERED: LEVO750T68 MT (11:53)
[2024-10-24] MEDS ORDERED: TAMS-54 PO (11:53)
[2024-10-24] MEDS ORDERED: LINE600T14 MT (11:53)
== END 2024-10-16 14:22 | disposition home or self-care (01) ==
LOC: ER 13:12
DX: R53.1 Weakness (principal); I10 Essential (primary) hypertension; G40.909 Epilepsy, unspecified, not intractable, without status epilepticus
CPT/HCPCS: 80076; 80305; 80048; 80320; 83735; 85025; 36415; 99283; J7030; G0480